=== PATIENT | male | born 1990 | race Caucasian/White ===

== ENCOUNTER 2018-04-03 10:35 | Emergency (ER) | payer OTHER, SELFPAY | END 2018-04-03 11:45 | disposition home or self-care (01) | LOC: M ED 10:35 | DX: S90.32XA Contusion of left foot, initial encounter (principal); W31.89XA Contact with other specified machinery, initial encounter; Y92.89 Other specified places as the place of occurrence of the external cause; Y99.0 Civilian activity done for income or pay; F17.210 Nicotine dependence, cigarettes, uncomplicated | CPT/HCPCS: 73630 ==

== ENCOUNTER 2018-12-11 10:30 | Emergency (ER) | payer OTHER ==
[~2018-12-11] VITALS: Ht 180.3 cm; Wt 88.8 kg
[~2018-12-11 10:30] MED LIST: IBUP-1022 PO
--- NOTE | 2018-12-11 13:00 | REP ---
Clinical: Pain. Technique: AP and lateral views of the cervical, thoracic, and lumbar spine along with open mouth view of the cervical spine, swimmers view, and coned-down views of the lumbar spine. Findings: Alignment is maintained. Vertebral bodies are intact. There is no evidence for acute fracture / compression injury or pathology. Impression: Normal examination. Electronically Signed by Haile España MD 12/11/2018 12:52 P
[2018-12-11] MEDS ORDERED: KETOROLAC 30 MG/ML VIAL (J1885) IM ONE (13:15)
[2018-12-11 13:42] VITALS: BP 135/71
[2018-12-11] MEDS ORDERED: CYCL10TA PO (13:59)
[2018-12-11] MEDS ORDERED: KETO10TAB PO (13:59)
== END 2018-12-11 14:12 | disposition home or self-care (01) ==
LOC: M ED 10:30
DX: S29.012A Strain of muscle and tendon of back wall of thorax, initial encounter (principal); M62.830 Muscle spasm of back; X50.0XXA Overexertion from strenuous movement or load, initial encounter; Y92.89 Other specified places as the place of occurrence of the external cause; Y99.0 Civilian activity done for income or pay; F17.200 Nicotine dependence, unspecified, uncomplicated
CPT/HCPCS: 72082; 96372; 99283; J1885

== ENCOUNTER 2022-02-13 10:23 | Emergency (ER) | payer OTHER ==
[~2022-02-13] VITALS: Ht 182.9 cm; Wt 88.1 kg
[~2022-02-13 10:23] MED LIST changes: +CYCL-707 PO; +KETO10TAB PO
[2022-02-13] MEDS ORDERED: PROPARACAINE 0.5% OPHTH SOL 15ML XX ONE (12:40)
[2022-02-13] MEDS ORDERED: FLUORESCEIN OPHTH 1 MG STRIP XX ONE (12:40)
[2022-02-13 13:26] VITALS: BP 129/79
== END 2022-02-13 13:28 | disposition home or self-care (01) ==
LOC: M ED 10:23
DX: S05.01XA Injury of conjunctiva and corneal abrasion without foreign body, right eye, initial encounter (principal)

== ENCOUNTER → 2022-12-19 | Outpatient (REF) | payer OTHER ==
[2022-12-19 12:12] LABS: BASO % 0.5 % (0.0-1.0); EOS # 0.1 10^3/uL (0.0-0.5); EOS % 1.4 % (0.0-3.0); HEMATOCRIT 37.6 % (42.0-52.0); HEMOGLOBIN 12.7 g/dl (13.5-17.5); LYMPH # 1.9 10^3/uL (1.5-5.0); LYMPH % 32.5 % (24.0-44.0); MEAN CORPUSCULAR HEMOGLOBIN 30.2 pg (27.0-33.0); MEAN CORPUSCULAR HGB CONC 33.8 g/dl (32.0-36.5); MEAN CORPUSCULAR VOLUME 89.5 fl (80.0-96.0); MONO # 0.8 10^3/uL (0.0-0.8); NEUTROPHILS % 51.3 % (36.0-66.0); PLATELET COUNT, AUTOMATED 158 10^3/uL (150-450); WHITE BLOOD COUNT 5.8 10^3/uL (4.0-10.0)
[2022-12-19 12:35] LABS: MONO SCRN NEGATIVE (NEGATIVE)
== END ==
LOC: M LAB REF 11:49
PROVIDERS: ATTEND Physician Assistant
DX: B34.9 Viral infection, unspecified (principal)

== ENCOUNTER 2025-06-14 12:28 | Outpatient (RCR) | payer OTHER ==
[~2025-06-14 12:28] MED LIST changes: -IBUP-1022 PO; +IBUP600T42 PO
== END 2025-06-15 | disposition still patient (30) ==
LOC: M PT 12:28
PROVIDERS: ATTEND Student in an Organized Health Care Education/Training Program
DX: Z98.890 Other specified postprocedural states (principal); Z47.89 Encounter for other orthopedic aftercare